=== PATIENT | male | born 1960 | race Caucasian/White ===

== ENCOUNTER 2019-04-27 06:59 | Day surgery (SDC) | payer SELFPAY ==
[~2019-04-27] VITALS: Ht 185.4 cm; Wt 93.4 kg
[~2019-04-27 06:59] MED LIST: ASPIRIN 81 LOW81 MG PO; MOBIC7.5 M1 PO
[2019-04-27 09:37] VITALS: BP 115/64
== END 2019-04-27 09:57 | disposition home or self-care (01) | DRG 392 ==
LOC: ENDO 06:59 → ORM 10:00 → ENDO 10:00
PROVIDERS: ATTEND Surgery
PROC: 0DBN8ZX Excision of Sigmoid Colon, Via Natural or Artificial Opening Endoscopic, Diagnostic (ICD-10-PCS; principal; 2019-04-27)
PROC: 0DBL8ZX Excision of Transverse Colon, Via Natural or Artificial Opening Endoscopic, Diagnostic (ICD-10-PCS; 2019-04-27)
DX: K57.30 Diverticulosis of large intestine without perforation or abscess without bleeding (principal); D12.5 Benign neoplasm of sigmoid colon; D12.3 Benign neoplasm of transverse colon; K64.8 Other hemorrhoids; Z80.0 Family history of malignant neoplasm of digestive organs

== ENCOUNTER 2023-10-14 06:40 | Day surgery (SDC) | payer OTHER ==
[~2023-10-14] VITALS: Ht 182.9 cm; Wt 86.2 kg
[~2023-10-14 06:40] MED LIST changes: +ELDERBERRY PO
[2023-10-14] MEDS ORDERED: FAMOTIDINE 10MG/ML 2ML SDV IV ONE (06:56)
[2023-10-14] MEDS ORDERED: LACTATED RINGER'S 1,000 ML IV ONE (06:56)
[2023-10-14] MEDS ORDERED: STERILE WATER FOR IRRIGATION 1,000 ML BTL IR ONE (07:38)
[2023-10-14 08:41] VITALS: BP 128/90
[2023-10-14] MEDS ORDERED: PROPOFOL 200 MG/20 ML VIAL IV ONE (12:35)
[2023-10-14] MEDS ORDERED: LIDOCAINE HCL 2% 2ML SDV IV ONE (12:35)
[2023-10-14] MEDS ORDERED: GLYCOPYRROLATE 0.2 MG/ML IV ONE (12:35)
== END 2023-10-14 08:53 | disposition home or self-care (01) | DRG 951 ==
LOC: ENDO 06:40 → ORM 08:00 → ENDO 08:53
PROVIDERS: ATTEND Surgery
PROC: 0DBL8ZX Excision of Transverse Colon, Via Natural or Artificial Opening Endoscopic, Diagnostic (ICD-10-PCS; principal; 2023-10-14)
DX: Z12.11 Encounter for screening for malignant neoplasm of colon (principal); D12.3 Benign neoplasm of transverse colon; K57.30 Diverticulosis of large intestine without perforation or abscess without bleeding; K64.8 Other hemorrhoids; Z86.010 Personal history of colon polyps